=== PATIENT | male | born 1995 | race Caucasian/White ===

== ENCOUNTER 2020-11-16 17:30 | Emergency (ER) | payer OTHER ==
--- NOTE | 2020-11-16 17:52 | NUR ---
PT CALLED 1ST TIME. NO ANSWER.
--- NOTE | 2020-11-16 18:04 | NUR ---
PT CALLED 2ND TIME. NO ANSWER.
--- NOTE | 2020-11-16 18:21 | NUR ---
PT CALLED 3RD TIME. NO ANSWER. MADE AWARE. [id number]
== END 2020-11-16 17:51 | disposition left against medical advice (07) ==
LOC: MED 17:30
DX: Z53.21 Procedure and treatment not carried out due to patient leaving prior to being seen by health care provider (principal)